=== PATIENT | female | born 1980 | race Caucasian/White ===

== ENCOUNTER 2023-11-24 16:25 | Emergency (ER) | payer OTHER, SELFPAY ==
--- NOTE | 2023-11-24 17:33 | ED_ITS ---
HPI - General Adult General Chief complaint: General Medical Stated complaint: ?infected areas,fever Time Seen by Provider: 11/25/23 03:58 Source: patient Mode of arrival: ambulatory Limitations: no limitations History of Present Illness ED Provider: Dr. Andrea Salter HPI narrative: 43-year-old female with a history of asthma, PTSD who presents emergency department for evaluation of fever, myalgias, arthralgias, fatigue and rash. The patient states that she did yd work proximally 4 days prior. She states she got multiple bites on her lower extremities. She states that over the past 2 days she has had fever, chills, fatigue, myalgias and arthralgias. She states that she is also rash on her right upper arm which is new. She denied chest pain, shortness of breath or cough. She had nausea but no vomiting or diarrhea. There are no other family members ill at this time. Related Data Previous Rx's ?Medication ?Instructions ?Recorded doxycycline hyclate 100 mg tablet 100 mg PO Q12H 21 days #42 tabs 11/25/23 ondansetron 4 mg disintegrating 4 mg PO Q6-8H PRN nausea and 11/25/23 tablet vomiting #14 tabs Allergies Allergy/AdvReac Type Severity Reaction Status Date / Time aripiprazole [From Abilify] Allergy Stomach Verified 11/24/23 17:38 Upset cephalexin [From Keflex] Allergy Stomach Verified 11/24/23 17:38 Upset Latex, Natural Rubber Allergy Rash Verified 11/24/23 17:38 nabumetone Allergy Stomach Verified 11/24/23 17:38 Upset Penicillins [PCN] Allergy Anaphylaxis Verified 11/24/23 17:38 shellfish derived Allergy Anaphylaxis Verified 11/24/23 17:38 sun sensitivity Allergy Rash Uncoded 11/24/23 17:38 Review of Systems 2 Review of Systems: Yes all other systems are reviewed and are negative [facility] Past Medical History [facility] Narrative: Social history: She denies tobacco use. She denies alcohol use. She occasionally eats a marijuana edible for her PTSD. Social History Social History Advance Directives: No Advance Directives Information Provided: No Physical Exam ED Vital Signs: Vital Signs - 24 hr 11/24/23 17:35 Temperature 99.5 F Pulse Rate 125 H Respiratory Rate 18 Blood Pressure 118/86 Pulse Oximetry 96 Oxygen Delivery Method Room Air BMI result Body Mass Index 42.7 Vital signs revealed an elevated heart rate of 125 otherwise unremarkable. Exam: General: Awake, alert in no distress Head: Normocephalic, atraumatic EENT: PERRL, Lids normal, sclera normal, conjunctiva normal, nose normal , ears normal, throat without erythema or exudates Neck: Supple, no adenopathy Lung: breath sounds symmetric, no wheezing, rales or rhonchi Chest: symmetric movement, nontender Heart: regular rate and rhythm, normal S1, S2 no murmurs or rubs Abdomen: soft, non-tender, nondistended, normal bowel sounds Back: no vertebral tenderness, no CVAT Skin: Was I lesion to her right triceps area, she has multiple lesions on her arms and lower extremities consistent with insect bites. Extremities: no deformities, moves all extremities symmetrically Neuro: Awake, alert, oriented, normal speech, cranial nerves intact, moves all extremities symmetrically Psych: Pleasant, cooperative Course Course Course Narrative: This is an RME: Additional HPI, ROS, PE not included below will be deferred to primary provider. RME assessment and note performed by: Starla Nieves PA-C This is a [id number]-female, with a hx of PTSD, anxiety, asthma, who presents to the ER with a complaint of rash, body aches, fevers, chills. Patient states that she was outdoors we would whacking. She woke up today with scattered bites throughout her body as well as a rash to her right tricep. Been taking ibuprofen and Tylenol. She states that she just ?does not feel right?. She is tachycardic, appears anxious however given symptoms, will obtain labs, blood cultures, lactic Plan: Labs Medical Decision Making Medical Decision Making MDM Narrative: 43-year-old female with a history of asthma, PTSD who presents emergency department for evaluation of fever, myalgias, arthralgias, fatigue and rash. The patient states that she did yard work 4 days prior. She states she got multiple bites on her extremity. She states that over the past 2 days she has had fever, chills, fatigue, myalgias and arthralgias. She states that she is also rash on her right upper arm which is new. She denied chest pain, shortness of breath or cough. Vital signs did reveal elevated heart rate otherwise was unremarkable. Physical examination did reveal multiple skin lesions which look like insect bites and a bull's-eye lesion to her right triceps. Differential diagnosis: ?Includes but is not limited to influenza, RSV, COVID, bacteremia, cellulitis, Lyme disease, other tick-borne illnesses, dehydration, volume depletion, anemia, electrolyte abnormalities Following evaluation was ordered:CBC, BMP, liver panel, magnesium, tick-borne illness panel, lactic acid, blood cultures x2, COVID, influenza, RSV Patient was initially treated with the following: IV insert, normal saline x1 L, Toradol 15 mg IV, Zofran 4 mg IV, doxycycline 100 mg orally Course: 04:30 My interpretation patient's laboratory evaluation as follows: Normal WBC 8500. Microcytic anemia with an H&H of 11.7 and 36.1, MCV was 78. CMP was normal. COVID-19, influenza and RSV were negative. Presentation and the is a rash on her right tricep area are consistent with acute Lyme disease. The patient doxycycline 100 mg q.12 hours times 21 days for acute Lyme disease. She was also advised to take Tylenol and ibuprofen for her fever and pain. She was given a prescription for Zofran 4 mg twice a day as needed for nausea and vomiting. She was given printed and verbal instructions and discharged home. Admission/Observation Consideration of admission/observation: Escalation of care including admission/observation considered Lab Data MDM Lab Attestation statement: I reviewed the patient's lab results. 11/24/23 18:15 11/24/23 18:15 Labs: Lab Results 11/24/23 Range/Units 18:15 WBC 8.5 (4.8-10.8) X10*3/uL RBC 4.58 (4.20-5.50) X10*6/uL Hgb 11.7 L (12.0-16.0) g/dl Hct 36.1 L (37.0-47.0) % MCV 78.8 L (80.0-98.0) fL MCH 25.5 L (27.0-33.0) pg MCHC 32.4 (31.0-35.0) g/dl RDW 15.8 (11.0-16.0) % Plt Count 281 (160-400) X10*3/uL MPV 10.2 (9.4-12.3) fL Immature Gran % (Auto) 0.2 (0.0-0.4) % Neut % (Auto) 64.5 (45-73) % Lymph % (Auto) 21.9 (20-40) % [place] % (Auto) 10.1 (2-11) % Eos % (Auto) 2.9 (0-4) % Baso % (Auto) 0.4 (0-2) % Lymph # (Auto) 1.9 (1.2-4.9) X10*3/uL [place] # (Auto) 0.9 (0.1-1.2) X10*3/uL Eos # (Auto) 0.3 (0.0-0.4) X10*3/uL Baso # (Auto) 0.0 (0.0-0.2) X10*3/uL Abs Immat Gran (auto) 0.02 (0.00-0.03) X10*3/uL Absolute Neuts (auto) 5.5 (2.0-8.3) x10*3/uL Absolute Nucleated RBC 0.000 (0.0-0.012) X10*3/uL Nucleated RBC % (auto) 0.0 (0.0-0.2) /100WBC Sodium 140 (135-145) mmol/L Potassium 3.6 (3.3-5.1) mmol/L Chloride 109 H (96-108) mmol/L Carbon Dioxide 20 L (22-29) mmol/L Anion Gap 15 (12-20) BUN 12 (9-16) mg/dL Creatinine 0.87 (0.5-1.4) mg/dL Estim Creat Clear Calc 123.8 Estimated GFR > 60 Random Glucose 101 (60-115) mg/dL Lactic Acid 0.8 (0.5-2.0) mmol/L Calcium 9.4 (8.4-10.2) mg/dL Magnesium 2.1 (1.6-2.6) mg/dL Total Bilirubin 0.2 (0.0-1.0) mg/dL Direct Bilirubin < 0.2 (0.0-0.5) mg/dL AST 15 (5-31) U/L ALT 15 (0-31) U/L Alkaline Phosphatase 73 (39-117) U/L Total Protein 7.6 (6.5-8.0) g/dL Albumin 4.4 (3.5-5.0) g/dL Influenza Type A (PCR) NEGATIVE (Negative) Influenza Type B (PCR) NEGATIVE (Negative) RSV RNA Qual (PCR) NEGATIVE (Negative) SARS-CoV-2 RNA (RT-PCR) NEGATIVE (Negative) Prescription Management I considered prescription management with: Antibiotic Chronic Conditions Patient?s care impacted by: Other (Asthma) Discharge Plan Discharge Clinical Impression: Acute Lyme disease Patient Disposition: Home, Self-Care Instructions: Lyme Disease (ED) Additional Instructions: Your symptoms and the rash on your right arm are consistent with Lyme disease. Take doxycycline 100 mg, 1 pill every 12 hours for 21 days Take Zofran ODT 4 mg pills, 1 pill dissolved in your mouth every 8 hours as needed for nausea and vomiting. Take ibuprofen 200 mg pills, 2 pills every 6 hours as needed for pain or fever. Take Tylenol (acetaminophen) 500 mg pills, 2 pills every 6 hours as needed for pain or fever. Follow-up with your doctor in 2 days. Please return to the emergency department if your symptoms get worse or if you develop any symptoms that are concerning to you. Clinically your presentation is consistent with acute Lyme disease. It is important that you take the doxycycline for 3 weeks even if the Lyme test comes back negative. Sometimes the Lyme test can be falsely negative in you still have Lyme disease. Prescriptions: New doxycycline hyclate 100 mg tablet 100 mg PO Q12H 21 Days Qty: 42 0RF ondansetron 4 mg tablet,disintegrating 4 mg PO Q6-8H PRN (Reason: nausea and vomiting) Qty: 14 0RF Print Language: Chadian
[2023-11-24 17:35] VITALS: BP 118/86; PULSE 125; RESP 18; TEMP 37.5; O2SAT 96; BMI 42.7
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
--- OUTSIDE RECORDS SUMMARY | 2023-11-24 18:18 | XMS_ITS | Continuity of Care Document ---
Author Organization [facility] Address [address] [place] [address]- Care Team Providers Care Work Order Sorting Clerk Name Role Phone Hussain Meyer Primary Care Physician Encounter [facility] Date(s): 09/13/21 - 10/13/21 [facility] [address] [place] [address]- Allergies, Adverse Reactions, Alerts Substance Reaction Severity [...]
--- OUTSIDE RECORDS SUMMARY | 2023-11-24 18:18 | XMS_ITS | Continuity of Care Document ---
Author Organization [facility] Address [address] [place] [address]- Care Team Providers Care Parking Worker Name Role Phone Hussain Meyer Primary Care Physician [phone] Encounter [facility] Date(s): 08/01/21 - 08/31/21 [facility] [address] [place] [address]- Allergies, Adverse Reactions, Alerts Substance Reaction Severity [...]
--- OUTSIDE RECORDS SUMMARY | 2023-11-24 18:18 | XMS_ITS | Continuity of Care Document ---
Author Organization [facility] Address [address] [place] [address]- Care Team Providers Care Crewman Armoured Personnel Carrier [id number] Name Role Phone Hussain Meyer Primary Care Physician Encounter [facility] Date(s): 07/07/21 - 08/06/21 [facility] [address] [place] [address]- Allergies, Adverse Reactions, Alerts Substance Reaction Severity [...]
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
--- OUTSIDE RECORDS SUMMARY | 2023-11-24 18:19 | XMS_ITS | Continuity of Care Document ---
Author Organization [facility] Address [address] [place] [address]- Care Team Providers Care Dialysis Rn Name Role Phone Hussain Meyer Primary Care Physician [place] [facility] 10[place]24/21 - 12/14/21 [facility] [address] [place] [address]- Attending Physician: Jen Mckeon MD Admitting Physician: Jen Mckeon MD Allergies, Adverse Reactions, Alerts Substance Reaction [...]
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
--- OUTSIDE RECORDS SUMMARY | 2023-11-24 18:19 | XMS_ITS | Continuity of Care Document ---
Author Organization [facility] Address [address] [place] [address]- Care Team Providers Care Freezer Machine Operator Name Role Phone Hussain Meyer Primary Care Physician Encounter [facility] Date(s): 08/09/21 - 09/08/21 [facility] [address] [place] [address]- Attending Physician: AdmGaurang muir Admitting Physician: Admtr, Ar8 Referring Physician: Admtr, Ar8 Allergies, Adverse Reactions, Alerts Substance Reaction Severity Status nabumetone Active penicillins hives, SOB Active Keflex Active Abilify abd pain Active Bee Stings Active Latex red itchines Active Seafood Active Immunizations Given and Recorded Vaccine Date [...]
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
--- OUTSIDE RECORDS SUMMARY | 2023-11-24 18:19 | XMS_ITS | Continuity of Care Document ---
Author Organization [facility] Address [address] [place] [address]- Care Team Providers Care Instrument Tester Name Role Phone Hussain Meyer Primary Care Physician [phone] [facility] Date(s): 11/14/21 - 12/14/21 [facility] [address] [place] [address]- Allergies, Adverse Reactions, Alerts Substance Reaction Severity [...]
--- OUTSIDE RECORDS SUMMARY | 2023-11-24 18:19 | XMS_ITS | Continuity of Care Document ---
Author Organization [facility] Address [address] [place] [address]- Care Team Providers Care Machine Tracer Name Role Phone Hussain Meyer Primary Care Physician [phone] Encounter [facility] Date(s): 11/14/21 - 12/14/21 [facility] [address] [place] [address]- Allergies, Adverse Reactions, Alerts Substance Reaction Severity [...]
--- OUTSIDE RECORDS SUMMARY | 2023-11-24 18:19 | XMS_ITS | Continuity of Care Document ---
[facility] Address [address] [place] [address], [address] [place] [address]- Care Team Providers Care Horticultural Specialty Grower Inside Name Role Phone Hussain Meyer Primary Care Physician En[facility] Date(s): 02/21/22 - 03/23/22 [facility] [address], 4th [place] [address]- Allergies, Adverse Reactions, Alerts Substance Reaction Severity [...] 60 tablet, 0Refills, Maintenance, 01/23/22 8:01:00 EDT, [facility], Partial fill upon patient request if the prescription is for a schedule II opioid drug.... Start Date: 01/23/22 Status: Ordered EpiPen 2-Sarabjit 0.3 mg injectable kit = 0.3 mg, Intramuscular, Once, # 2 each, 1 Refills, Soft Stop, 11/18/21 12:18:00 EDT, [facility] #[facility], 175, cm, 10/17/21 12:59:00 EDT, Height, 130, kg, 06/27/21 9:59:00 EST, Dry Weight Start Date: 11/18/21 Status: Ordered hydrOXYzine hydrochloride 25 mg oral tablet 1 tablet = 25 mg, By Mouth, 4 times a day, PRN for anxiety, # 120 tablet, 0 Refills, Maintenance, 01/03/22 20:08:00 EDT, Tablet, [facility] #[facility], Partial fill upon patient [...] 9:02:00 EDT, Inhaler, Route to Pharmacy Electronically, [id number], [facility], 175, cm, 10/17/21 12:59:00 E... Start Date: 11/14/21 Status: Ordered traZODone 50 mg oral tablet 50 mg, 1, tablet, By Mouth, Daily at bedtime, # 90 tablet, Refills 0, Tot. Refills 0, Maintenance, 11/14/21 9:00:00 EDT, Route to Pharmacy Electronically, [facility], Partial fill upon patient request if the prescription is for a schedule II o... Start Date: 11/14/21 Status: Ordered Unisom 25 mg oral tablet 1 tablet = 25 mg, By Mouth, Daily at bedtime, PRN for sleep, # 30 tablet, 1 Refills, Maintenance, 03/16/22 9:43:00 EDT, Tablet, [facility] #[facility], Partial fill upon patient request [...] Care Team Personnel Name: Hussain Meyer Address: [address] [place] [address] [facility] [address]-
--- OUTSIDE RECORDS SUMMARY | 2023-11-24 18:19 | XMS_ITS | Continuity of Care Document ---
Author Organization [facility] Address [address] [place] [address]- Care Team Providers Care Electrical Assembler Name Role Phone Hussain Meyer Primary Care Physician Encounter [facility] Date(s): 11/14/21 - 12/14/21 [facility] [address] [place] [address]- Allergies, Adverse Reactions, Alerts Substance Reaction Severity [...]
--- OUTSIDE RECORDS SUMMARY | 2023-11-24 18:19 | XMS_ITS | Continuity of Care Document ---
Author Organization [facility] Address [address] [place] [address]- Care Team Providers Care Road Monkey Name Role Phone Hussain Meyer Primary Care Physician Encounter [facility] Date(s): 08/03/21 - 09/02/21 [facility] [place] [address] [place] [address]- Allergies, Adverse Reactions, Alerts Substance Reaction Severity [...] Contreras rded influenza virus vaccine, inactivated 02/18/19 Conterras rded influenza virus vaccine, inactivated 03/27/18 Contreras [...]
--- OUTSIDE RECORDS SUMMARY | 2023-11-24 18:19 | XMS_ITS | Continuity of Care Document ---
Author Organization [facility] Address [address] [place] [address]- Care Team Providers Care Open Hearth Door Liner Name Role Phone Hussain Meyer Primary Care Physician Encounter [facility] Date(s): 08/05/21 - 09/04/21 [facility] [address] [place] [address]- Allergies, Adverse Reactions, Alerts Substance Reaction Severity [...]
--- OUTSIDE RECORDS SUMMARY | 2023-11-24 18:19 | XMS_ITS | Continuity of Care Document ---
Author Organization [facility] Address [address] [place] [address]- Care Team Providers Care Scratch Finisher Name Role Phone Hussain Meyer Primary Care Physician Encounter [facility] Date(s): 09/23/21 - 10/23/21 [facility] [address] [place] [address]- Allergies, Adverse Reactions, Alerts Substance Reaction Severity Status nabumetone Active penicillins hives, SOB Active Keflex Active Seafood Active Abilify abd pain Active Bee Stings Active Latex red itchines Active Immunizations Given and Recorded Vaccine Date [...]
--- OUTSIDE RECORDS SUMMARY | 2023-11-24 18:19 | XMS_ITS | Continuity of Care Document ---
Author Organization [facility] [place] Address [address] [address]- Care Team Providers Care Air Export Logistics Manager Name Role Phone Hussain Meyer Primary Care Physician Encounter [facility] Date(s): 06/27/21 - 07/27/21 [facility] [address] [address]- Attending Physician: Admtr, Ar8 Admitting Physician: Admtr, Ar8 Referring Physician: Admtr, [...]
--- OUTSIDE RECORDS SUMMARY | 2023-11-24 18:19 | XMS_ITS | Continuity of Care Document ---
Author Organization [facility] Address [address] [place] [address]- Care Team Providers Care Head Of Design Name Role Phone Hussain Meyer Primary Care Physician Encounter [facility] Date(s): 07/08/21 - 08/07/21 [facility] [address] [place] [address]- Allergies, Adverse Reactions, Alerts Substance Reaction Severity [...]
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
--- OUTSIDE RECORDS SUMMARY | 2023-11-24 18:19 | XMS_ITS | Continuity of Care Document ---
Author Organization [facility] [place] Address [address] [place] [address]- Care Team Providers Care Yard Driver Name Role Phone Hussain Meyer Primary Care Physician Encounter [facility] Date(s): 07/07/21 - 08/06/21 [facility] [address] [place] [address]- Allergies, Adverse Reactions, Alerts Substance Reaction Severity [...]
--- OUTSIDE RECORDS SUMMARY | 2023-11-24 18:19 | XMS_ITS | Continuity of Care Document ---
Author Organization [facility] [place] Address [address] [place] [address]- Care Team Providers Care Security Incident Response Specialist Name Role Phone Hussain Meyer Primary Care Physician Encounter [facility] Date(s): 06/27/21 - 07/27/21 [facility] [address] [place] [address]- Allergies, Adverse Reactions, Alerts Substance Reaction Severity [...]
--- OUTSIDE RECORDS SUMMARY | 2023-11-24 18:19 | XMS_ITS | Continuity of Care Document ---
Author Organization [facility] Address [address] [place] [address]- Care Team Providers Care Copra Processor Name Role Phone Hussain Meyer Primary Care Physician [phone] Encounter [facility] Date(s): 11/15/21 - 12/15/21 [facility] [address] [place] [address]- Allergies, Adverse Reactions, Alerts Substance Reaction Severity [...]
--- OUTSIDE RECORDS SUMMARY | 2023-11-24 18:20 | XMS_ITS | Continuity of Care Document ---
Author Organization [facility] Address [address] [place] [address]- Care Team Providers Care Cloud Subject Matter Expert Name Role Phone Hussain Meyer Primary Care Physician [phone] Encounter [facility] Date(s): 08/03/21 - 09/02/21 [facility] [address] [place] [address]- Allergies, Adverse Reactions, Alerts Substance Reaction Severity [...]
--- OUTSIDE RECORDS SUMMARY | 2023-11-24 18:20 | XMS_ITS | Continuity of Care Document ---
Author Organization [facility] Address [address] [place] [address]- Care Team Providers Care Media Librarian Name Role Phone Hussain Meyer Primary Care Physician [phone] [place] [facility] [place]s): 11/23/21 - 12/23/21 [facility] [address] [place] [address] Attending Physician: Gaurang Rodriguez Admitting Physician: Gaurang Rodriguez Referring Physician: [id number] Allergies, Adverse Reactions, Alerts Substance Reaction Severity Status nabumetone Active Seafood Active Abilify abd pain Active penicillins hives, SOB Active Keflex Active [...]
--- OUTSIDE RECORDS SUMMARY | 2023-11-24 18:20 | XMS_ITS | Continuity of Care Document ---
Author Organization [facility] Address [address] [place] [address]- Care Team Providers Care Pneumatic Tube Repairer Name Role Phone Hussain Meyer Primary Care Physician Encounter [facility] Date(s): 08/04/21 - 09/03/21 [facility] [address] [place] [address]- Allergies, Adverse Reactions, Alerts Substance Reaction Severity [...]
--- OUTSIDE RECORDS SUMMARY | 2023-11-24 18:20 | XMS_ITS | Continuity of Care Document ---
Author Organization [facility] Address [address] [place] [address]- Care Team Providers Care Cloth Packer Name Role Phone Not on Staff, PCP Primary Care Physician Unavail able Encounter [facility] [id number] Date(s): 04/17/21 - 04/17/[address] [address]- Discharge Disposition: A-D/C Home Attending Physician: Quincy Heard MD Admitting Physician: Quincy Heard MD Referring Physician: Not on Staff, Referring MD Allergies, Adverse Reactions, Alerts Substance Reaction Severity Status nabumetone Active penicillins hives, SOB Active Keflex Active Abilify abd pain Active Bee Stings Active Latex red itchines Active Seafood Active Immunizations Given and Recorded Vaccine Date Status Refusal Reason SARS-CoV-2 (COVID-19) mRNA-1273 vaccine 11/02/20 R ecorded SARS-CoV-2 (COVID-19) mRNA-1273 vaccine 10/07/20 R ecorded influenza virus vaccine, inactivated 05/20/20 Contreras rded influenza virus vaccine, inactivated 02/18/19 Contreras rded influenza virus vaccine, inactivated 03/27/18 Contreras rded influenza virus vaccine, inactivated 05/25/17 Contreras rded tetanus/diphtheria/pertussis, acel(Tdap) 11/26/19 Recorded tetanus/diphtheria/pertussis, acel(Tdap) 07/10/09 Recorded Fluzone Preservative-Free (oldterm) 04/16/15 Recor ded Adacel (Tdap) (oldterm) 07/10/09 Recorded Medications Advil 200 mg oral tablet 4 tablet = 800 mg, By Mouth, Every 6 hours, PRN as needed for pain, For chronic back pain, 07/22/1411:30:00 Start Date: 07/22/13 Status: Ordered Dilaudid Inj 1 mg, Injection, IV Push Slowly, Every 30 minutes for 2 doses/times, PRN for Other, Pain >3/10, STAT, 04/17/21 5:15:00 EDT, Stop date Limited # of times Start Date: 04/17/21 Stop Date: 04/17/21 Status: Completed Percocet-5/325 325 mg-5 mg oral tablet 2 tablet, Tablet, By Mouth, Once, Routine, 04/17/21 10:00:00 EDT, Stop date 04/17/21 10:00:00 EDT Start Date: 04/17/21 Stop Date: 04/17/21 Status: Completed Multivitamins with Vitamin B Complex, Vitamin C, Minerals and L- Methylfolate oral capsule 1 capsule, By Mouth, Daily, 0 Refills, Maintenance, 01/28/19 3:23:36 EDT, Capsule Start Date: 01/28/19 Status: Ordered PROzac 40 mg oral capsule 1 capsule = 40 mg, By Mouth, Daily, # 30 capsule, [...] to oldest [Reference Range]: 1 2 3 Height 175 cm (04/17/21 5:00 AM) Weight 125.7 kg (04/17/21 5:00 AM) Oxygen Saturation [94-100 %] 97 % (04/17/21 8:55 AM) 97 % (04/17/21 7:48 AM) 100 % (04/17/21 5:00 AM) Pulse Rate [55-90 bpm] 87 bpm (04/17/21 8:55 AM) 93 bpm *H* (04/17/21 7:48 AM) 100 bpm *H* (04/17/21 5:00 AM) Blood Pressure [90-138/55-84 mm Hg] 101/55mm Hg (04/17/21 8:55 AM) 122/78mm Hg (04/17/21 7:48 AM) 135/67mm Hg (04/17/21 5:00 AM) Respiratory Rate [16-30 br/min] 20 br/min (04/17/21 8:55 AM) 20 br/min (04/17/21 8:48 AM) 20 br/min (04/17/21 8:13 AM) Temperature [96.8-100.4 DegF] 96.9 DegF (04/17/21 5:00 AM) Mode of Delivery (Oxygen) Room air (04/17/21 8:55 AM) Room air (04/17/21 7:48 AM) Room air (04/17/21 5:00 AM) Blood pressure sites Arm, right (04/17/21 8:55 AM) Arm, right (04/17/21 7:48 AM) Arm, left (04/17/21 5:00 AM) Temperature Route Temporal (04/17/21 5:00 AM) Dry Weight 125.7 kg (04/17/21 5:00 AM) Weight Obtained Via Patient/family state d (04/17/21 5:00 AM) Dry Weight Obtained Via Patient/family s tated (04/17/21 5:00 AM) Social History Social History Type Response Smoking Status Never smoker; Tobacc o user in household: No entered on: 06/21/15 Sex
--- OUTSIDE RECORDS SUMMARY | 2023-11-24 18:20 | XMS_ITS | Continuity of Care Document ---
Author Organization [facility] Address [address] [place] [address]- Care Team Providers Care Crab Picker Name Role Phone Hussain Meyer Primary Care Physician Encounter [facility] Date(s): 07/26/21 - 08/25/21 [facility] [address] [place] [address]- Allergies, Adverse Reactions, Alerts Substance Reaction Severity Status nabumetone Active penicillins hives, SOB Active Bee Stings Active Latex red itchines Active Seafood Active Abilify abd pain Active Keflex Active Immunizations Given and Recorded Vaccine Date [...]
--- OUTSIDE RECORDS SUMMARY | 2023-11-24 18:20 | XMS_ITS | Continuity of Care Document ---
Author Organization [facility] [place] Address [address] [place] [address]- Care Team Providers Care Derrick Operator Name Role Phone Hussain Meyer Primary Care Physician Encounter [facility] Date(s): 07/19/21 - 08/18/21 [facility] [address] [place] [address]- Allergies, Adverse Reactions, Alerts Substance Reaction Severity Status nabumetone Active Abilify abd pain Active penicillins hives, [...]
--- OUTSIDE RECORDS SUMMARY | 2023-11-24 18:20 | XMS_ITS | Continuity of Care Document ---
Author Organization [facility] Address [address] [place] [address]- Care Team Providers Care Hose Cementer Name Role Phone Hussain Meyer Primary Care Physician [phone] Encounter [facility] Date(s): 07/08/21 - 08/07/21 [facility] [address] [place] [address]- Allergies, Adverse Reactions, Alerts Substance Reaction Severity [...]
--- OUTSIDE RECORDS SUMMARY | 2023-11-24 18:20 | XMS_ITS | Continuity of Care Document ---
Author Organization [employer] Address [address] [place] [address]- Care Team Providers Care Dental Hygiene Professor Name Role Phone Crystal Cintron MD Primary Care Physician Encounter [facility] Date(s): 08/17/20 - 08/17/[address] [address]- Encounter Diagnosis Ovarian cyst, right(Final) - 08/17/20 Urinary urgency(Final) - 08/17/20 Increased urinary frequency(Final) - 08/17/20 Discharge Disposition: A-D/C Home Attending Physician: Josh Gu MD Admitting Physician: Josh Gu MD Referring Physician: Not on Staff, Referring MD Allergies, Adverse Reactions, Alerts Substance Reaction Severity Status nabumetone Active penicillins hives, SOB Active Keflex Active Bee Stings Active Latex red itchines Active Seafood Active Abilify abd pain Active Immunizations Given and Recorded Vaccine Date Status Refusal Reason Fluzone Preservative-Free (oldterm) 04/16/15 Recor ded Adacel (Tdap) (oldterm) 07/10/09 Recorded Medications Advil 200 mg oral tablet 4 tablet = 800 mg, By Mouth, Every 6 hours, PRN as needed for pain, For chronic back pain, 07/22/1411:30:00 Start Date: 07/22/13 Status: Ordered cyclobenzaprine 5 mg oral tablet 1 tablet = 5 mg, By Mouth, 3 times a day, # 90 tablet, 1 Refills, Maintenance, 10/09/16 9:17:00 Start Date: 10/09/16 Status: Ordered Depo-Provera Contraceptive 150 mg/mL intramuscular suspension 1 mL = 150 mg, Intramuscular, Every 3 months, # 1 mL, 3 Refills, Maintenance, 02/21/17 13:28:17, Suspension Start Date: 02/21/17 Status: Ordered EpiPen 2-Sarabjit USE DIRECTED NEEDED FOR BEE STING, 11/17/13 5:00:00 Start Date: 11/17/13 Status: Ordered MorPHINE Inj 4 mg, Injection, IV Push Slowly, Every 5 minutes for 3 doses/times, PRN for Pain , Moderate, and SBP greater than 100, Routine, 08/17/20 22:14:00 EST, Stop date Limited # of times Start Date: 08/17/20 Status: Ordered Multivitamin 2 gummies, By Mouth, Daily in AM, 0 Refills, Maintenance, 09/14/15 11:37:42 Start Date: 09/14/15 Status: Ordered nitrofurantoin macrocrystals-monohydrate 100 mg oral capsule 1 capsule = 100 mg, By Mouth, 2 times a day, for 5 days, # 10 capsule, 0 Refills, Acute 08/22/20 22:08:00 EST, 08/17/20 22:08:00 EST, Capsule, [facility], Partial fill upon patient request ifthe prescription is for a schedule II opioid drug.,... Start Date: 08/17/20 Stop Date: 08/22/20 Status: Ordered phenazopyridine 200 mg oral tablet 200 mg, 1, tablet, By Mouth, 3 times a day, PRN, with food, # 6 tablet, Refills 0, Tot. Refills 0, Maintenance, as needed for urinary discomfort, 01/28/19 5:07:24 EDT, Print Requisition Start Date: 01/28/19 Status: Ordered Multivitamins with Vitamin B Complex, Vitamin C, Minerals and L- Methylfolate oral capsule 1 capsule, By Mouth, Daily, 0 Refills, Maintenance, 01/28/19 3:23:36 EDT, Capsule Start Date: 01/28/19 Status: Ordered Problem List Condition Effective Dates [...] Range]: 1 2 3 Height 175 cm (08/17/20 10:16 PM) 175 cm (08/17/20 8:34 PM) 175 cm (08/17/20 7:42 PM) Weight 128.5 kg (08/17/20 8:34 PM) 128.5 kg (08/17/20 7:42 PM) 128.5 kg (08/17/20 4:56 PM) Oxygen Saturation [94-100 %] 100 % (08/17/20 10:16 PM) 100 % (08/17/20 8:34 PM) 100 % (08/17/20 7:42 PM) Pulse Rate [55-90 bpm] 93 bpm *H* (08/17/20 10:16 PM) 91 bpm *H* (08/17/20 8:34 PM) 93 bpm *H* (08/17/20 7:42 PM) Body Mass Index [18.5-24.99] 41.96 *>HHI* (08/17/20 8:34 PM) 41.96 *>HHI* (08/17/20 7:42 PM) Blood Pressure [90-138/55-84 mm Hg] 110/73mm Hg (08/17/20 10:16 PM) 97/66mm Hg (08/17/20 8:34 PM) 95/67mm Hg (08/17/20 7:42 PM) Respiratory Rate [16-30 br/min] 16 br/min (08/17/20 10:16 PM) 20 br/min (08/17/20 10:15 PM) 17 br/min (08/17/20 8:34 PM) Temperature [96.8-100.4 DegF] 97.2 DegF (08/17/20 4:56 PM) Mode of Delivery (Oxygen) Room air (08/17/20 10:16 PM) Room air (08/17/20 8:34 PM) Room air (08/17/20 7:42 PM) Blood pressure sites Arm, left (08/17/20 10:16 PM) Arm, right (08/17/20 8:34 PM) Arm, right (08/17/20 7:42 PM) Temperature Route Temporal (08/17/20 4:56 PM) Dry Weight 128.5 kg (08/17/20 8:34 PM) 128.5 kg (08/17/20 7:42 PM) 128.5 kg (08/17/20 4:56 PM) Dry Weight Obtained Via Standing scale (08/17/20 4:56 PM) Social History Social History Type Response Smoking Status Never smoker; Tobacc o user in household: No entered on: 06/21/15 Sex
--- OUTSIDE RECORDS SUMMARY | 2023-11-24 18:20 | XMS_ITS | Continuity of Care Document ---
Author Organization [facility] Address [address] [place] [address]- Care Team Providers Care Hand Surgeon Name Role Phone Hussain Meyer Primary Care Physician Encounter [facility] Date(s): 05/03/21 - 06/02/21 [facility] [address] [place] [address]- Allergies, Adverse Reactions, Alerts Substance Reaction Severity [...] pain, 07/22/1411:30:00 Start Date: 07/22/13 Status: Ordered Multivitamins with Vitamin B Complex, [...] Active Obesity(Confirmed) Active Post-traumatic stress disorder(Confirmed) Active Social History Social History Type Response Smoking Status Never smoker; Tobacc o user in household: No entered on: 06/21/15 Sex
--- OUTSIDE RECORDS SUMMARY | 2023-11-24 18:20 | XMS_ITS | Continuity of Care Document ---
Author Organization [facility] Address [address], [address] [place] [address]- Care Team Providers Care Associate Field Service Engineer Name Role Phone Hussain Meyer Primary Care Physician Encounter [facility] Date(s): 01/27/22 - 02/26/22 [facility] [address] [place] [address]- Allergies, Adverse Reactions, Alerts Substance Reaction Severity [...] opioid drug. Start Date: 10/17/21 Status: Ordered Unisom 25 mg oral tablet 1/2 tablet, By Mouth, Daily at bedtime, for 30 days, # 15 tablet, 0 Refills, Acute 03/15/22 9:40:00EDT, 02/13/22 9:40:00 EDT, [facility], Partial fill upon patient request if the prescription is for a schedule II opioid drug., 175, cm, ... Start Date: 02/13/22 Stop Date: 03/15/22 Status: Ordered Vitamin B6 25 mg oral tablet 1 tablet = 25 mg, By Mouth, 3 times a day, for 30 days, # 90 tablet, 0 Refills, Acute 03/15/22 9:40:00 EDT, 02/13/22 9:40:00 EDT, [facility], Partial fill upon patient [...] Team Personnel Name: Hussain Meyer Address: [address] [place] [address] [place] [address]-
--- OUTSIDE RECORDS SUMMARY | 2023-11-24 18:20 | XMS_ITS | Continuity of Care Document ---
Author Organization [facility] Address [address] [place] [address]- Care Team Providers Care Commercial Loan Processor Name Role Phone Hussani Meyer Primary Care Physician Encounter [facility] Date(s): 04/21/21 - 05/21/21 [facility] [address] [place] [address]- [place] Allergies, Adverse Reactions, Alerts Substance Reaction Severity [...]
--- OUTSIDE RECORDS SUMMARY | 2023-11-24 18:20 | XMS_ITS | Continuity of Care Document ---
Author Organization [facility] Address [address], [address] [place] [address]- Care Team Providers Care Facility Specialist Name Role Phone Hussain Meyer Primary Care Physician Encounter [facility] Date(s): 02/05/22 - 03/07/22 [facility] [place] [facility] [address] [place] [address]- Allergies, Adverse Reactions, Alerts Substance Reaction Severity [...] 60 tablet, 0Refills, Maintenance, 01/23/22 8:01:00 EDT, [facility], Partial fill upon patient request if the prescription is for a schedule II opioid drug.... Start Date: 01/23/22 Status: Ordered EpiPen 2-Sarabjit 0.3 mg injectable kit = 0.3 mg, Intramuscular, Once, # 2 each, 1 Refills, Soft Stop, 11/18/21 12:18:00 EDT, [facility], 175, cm, 10/17/21 12:59:00 EDT, Height, 130, kg, 06/27/21 9:59:00 EST, Dry Weight Start Date: 11/18/21 Status: Ordered hydrOXYzine hydrochloride 25 mg oral tablet 1 tablet = 25 mg, By Mouth, 4 times a day, PRN for anxiety, # 120 tablet, 0 Refills, Maintenance, 01/03/22 20:08:00 EDT, Tablet, [facility], Partial fill upon [...] 9:02:00 EDT, Inhaler, Route to Pharmacy Electronically, [id number], [facility], 175, cm, 10/17/21 [...] Care Team Personnel Name: Hussain Meyer Address: [address] [place] [address] [address]-
--- OUTSIDE RECORDS SUMMARY | 2023-11-24 18:20 | XMS_ITS | Continuity of Care Document ---
Author Organization [facility] Address [address] [place] [address]- Care Team Providers Care Spanish Instructor Name Role Phone Hussain Meyer Primary Care Physician Encounter [facility] Date(s): 09/13/21 - 10/13/21 [facility] [address] [place] [address]- Allergies, Adverse Reactions, Alerts Substance Reaction Severity [...]
--- OUTSIDE RECORDS SUMMARY | 2023-11-24 18:20 | XMS_ITS | Continuity of Care Document ---
Author Organization [facility] Address [address] [place] [address]- Care Team Providers Care Tugboat Captain Name Role Phone Saida RIVERA, Crystal Magallanes Primary Care Physician Encounter [facility] Date(s): 04/17/21 - 04/19/[address] [address] Discharge Disposition: A-D/C Home Attending Physician: Shreya Melo MD Admitting Physician: Tad Boucher DO Referring Physician: Not on Staff, Referring MD Allergies, Adverse Reactions, Alerts Substance Reaction Severity Status nabumetone Active penicillins hives, SOB Active Latex red itchines Active Abilify abd pain Active Keflex Active Bee Stings Active Seafood Active Immunizations Given and Recorded [...] Start Date: 07/22/13 Status: Ordered Dilaudid Inj 0.5 mg, Injection, IV Push Slowly, Every 3 hours, PRN for Pain , Severe, Routine, 04/17/21 19:15:00EDT Start Date: 04/17/21 Stop Date: 04/19/21 Status: Discontinued oxyCODONE 5 mg oral tablet 5 mg, Tablet, By Mouth, Every 6 hours, PRN for Pain , Moderate, Routine, 04/18/21 1:01:00 EDT Start Date: 04/18/21 Stop Date: 04/19/21 Status: Discontinued Multivitamins with Vitamin B Complex, Vitamin C, [...] opioid drug. Start Date: 04/17/21 Status: Ordered simethicone 80 mg oral tablet, chewable 80 mg, 1, tablet, Chew, 4 times a day, # 12 tablet, Refills 0, Tot. Refills 0, Acute 04/20/21 10:11:00 EDT, 04/19/21 10:10:00 EDT, Route to Pharmacy Electronically, [facility], Partial fill upon patient request if the prescription is for a neil... Start Date: 04/19/21 Stop Date: 04/20/21 Status: Ordered Zofran 4 mg oral tablet 1 tablet = 4 mg, By Mouth, Every 8 hours, PRN Nausea & Vomiting, # 10 tablet, 0 Refills, Acute 04/20/21 10:10:00 EDT, 04/19/21 10:10:00 EDT, Tablet, [facility], Partial fill upon patient request if the prescription is for a schedule II opioid... Start Date: 04/19/21 Stop Date: 04/20/21 Status: Ordered Problem List Condition Effective Dates [...] Range]: 1 2 3 Height 175 cm (04/19/21 5:24 AM) 175 cm (04/18/21 8:52 PM) 175 cm (04/18/21 2:54 PM) Weight 127.7 kg (04/17/21 8:00 PM) 127.7 kg (04/17/21 7:53 PM) 126 kg (04/17/21 4:41 PM) Oxygen Saturation [94-100 %] 94 % (04/19/21 5:24 AM) 92 % *L* (04/18/21 8:52 PM) 99 % (04/18/21 2:54 PM) Pulse Rate [55-90 bpm] 74 bpm (04/19/21 5:24 AM) 88 bpm (04/18/21 8:52 PM) 97 bpm *H* (04/18/21 2:54 PM) Body Mass Index [18.5-24.99] 41.7 *>HHI* (04/17/21 8:00 PM) 41.7 *>HHI* (04/17/21 7:53 PM) Blood Pressure [90-138/55-84 mm Hg] 97/62mm Hg (04/19/21 5:24 AM) 98/59mm Hg (04/18/21 8:52 PM) 123/88mm Hg (04/18/21 2:54 PM) Respiratory Rate [16-30 br/min] 18 br/min (04/19/21 10:28 AM) 18 br/min (04/19/21 6:17 AM) 20 br/min (04/19/21 5:24 AM) Temperature [96.8-100.4 DegF] 97.8 DegF (04/19/21 5:24 AM) 99.1 DegF (04/18/21 8:52 PM) 97.2 DegF (04/18/21 2:54 PM) Mode of Delivery (Oxygen) Room air (04/19/21 5:24 AM) Room air (04/18/21 8:52 PM) Room air (04/18/21 2:54 PM) Blood pressure sites Arm, right (04/19/21 5:24 AM) Arm, right (04/18/21 8:52 PM) Arm, left (04/18/21 2:54 PM) Temperature Route Oral (04/19/21 5:24 AM) Oral (04/18/21 8:52 PM) Oral (04/18/21 2:54 PM) Dry Weight 127.7 kg (04/17/21 8:00 PM) 127.7 kg (04/17/21 7:53 PM) 126 kg (04/17/21 4:41 PM) Weight Obtained Via Standing scale (04/17/21 7:53 PM) Dry Weight Obtained Via Standing scale (04/17/21 7:53 PM) Social History Social History Type Response Smoking Status Never smoker; Tobacc o user in household: No entered on: 06/21/15 Sex
--- OUTSIDE RECORDS SUMMARY | 2023-11-24 18:20 | XMS_ITS | Continuity of Care Document ---
Author Organization [facility] Address [address] [place] [address]- Care Team Providers Care Reports Developer Name Role Phone Hussain Meyer Primary Care Physician [phone] [facility] Date(s): 11/14/21 - 12/14/21 [facility] [address] [place] [address]- Allergies, Adverse Reactions, Alerts Substance Reaction Severity [...]
--- OUTSIDE RECORDS SUMMARY | 2023-11-24 18:20 | XMS_ITS | Continuity of Care Document ---
Author Organization [facility] Address [address], [address] [place] [address]- Care Team Providers Care Software Quality Engineer Name Role Phone Hussain Meyer Primary Care Physician Encounter [facility] Date(s): 02/13/22 - 03/15/22 [facility] [address] [place] [address]- Attending Physician: Admtr, Ar8 Admitting Physician: Admtr, [...] 60 tablet, 0Refills, Maintenance, 01/23/22 8:01:00 EDT, [facility], Partial fill upon patient request if the prescription is for a schedule II opioid drug.... Start Date: 01/23/22 Status: Ordered EpiPen 2-Sarabjit 0.3 mg injectable kit = 0.3 mg, Intramuscular, Once, # 2 each, 1 Refills, Soft Stop, 11/18/21 12:18:00 EDT, [facility], 175, cm, 10/17/21 12:59:00 EDT, Height, 130, kg, 06/27/21 9:59:00 EST, Dry Weight Start Date: 11/18/21 Status: Ordered hydrOXYzine hydrochloride 25 mg oral tablet 1 tablet = 25 mg, By Mouth, 4 times a day, PRN for anxiety, # 120 tablet, 0 Refills, Maintenance, 01/03/22 20:08:00 EDT, Tablet, [facility], Partial fill upon [...] 9:02:00 EDT, Inhaler, Route to Pharmacy Electronically, [id number], [facility], 175, cm, 10/17/21 12:59:00 E... Start Date: 11/14/21 Status: Ordered traZODone 50 mg oral tablet 50 mg, 1, tablet, By Mouth, Daily at bedtime, # 90 tablet, Refills 0, Tot. Refills 0, Maintenance, 11/14/21 9:00:00 EDT, Route to Pharmacy Electronically, [facility], Partial fill upon patient request if the prescription is for a schedule II o... Start Date: 11/14/21 Status: Ordered Problem List Condition Effective Dates [...] Care Team Personnel Name: Hussain Meyer Address: [address] [place] [address] [place] [address]-
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
--- OUTSIDE RECORDS SUMMARY | 2023-11-24 18:20 | XMS_ITS | Continuity of Care Document ---
Author Organization [facility] Address [address] [place] [address], [address] [place] [address]- Care Team Providers Care Discovery Guide Name Role Phone Hussain Meyer Primary Care Physician En[facility] Date(s): 02/13/22 - 02/20/22 [facility] [address] [place], [place] [address] Attending Physician: Ariella Clemente MD Referring Physician: Hussain Meyer Allergies, Adverse Reactions, [...] Refills, Acute 03/15/22 9:40:00EDT, 02/13/22 9:40:00 EDT, [facility], Partial fill upon patient request if the prescription is for a schedule II opioid drug., 175, cm, ... Start Date: 02/13/22 Stop Date: 03/15/22 Status: Ordered Vitamin B6 25 mg oral tablet 1 tablet = 25 mg, By Mouth, 3 times a day, for 30 days, # 90 tablet, 0 Refills, Acute 03/15/22 9:40:00 EDT, 02/13/22 9:40:00 EDT, [facility], Partial fill upon patient request [...] Post-traumatic stress disorder(Confirmed) Active Severe obesity(Confirmed) Active Vital Signs Most recent to oldest [Reference Range]: 1 Height 175 cm (02/13/22 8:58 AM) Social History Social History Type Response Smoking Status Never (less than 100 in lifetime) entered on: 06/14/21 Sex
--- OUTSIDE RECORDS SUMMARY | 2023-11-24 18:20 | XMS_ITS | Continuity of Care Document ---
Author Organization [facility] Address [address] [place] [address]- Care Team Providers Care Database Design Analyst Name Role Phone Hussain Meyer Primary Care Physician [phone] Encounter [facility] Date(s): 07/21/21 - 08/20/21 [facility] [address] [place] [address]- Attending Physician: AdmGaurang muir Admitting Physician: Admtr, Ar8 Referring Physician: Admtr, Ar8 Allergies, Adverse Reactions, Alerts Substance Reaction Severity Status nabumetone Active penicillins hives, SOB Active Abilify abd pain Active Keflex Active Bee Stings Active Latex [...] Contreras rded influenza virus vaccine, inactivated 03/27/18 Conrteras rded influenza virus vaccine, inactivated 05/25/17 Contreras [...]
--- OUTSIDE RECORDS SUMMARY | 2023-11-24 18:20 | XMS_ITS | Continuity of Care Document ---
Author Organization [facility] Address [address] [place] [address]- Care Team Providers Care Daycare Director Name Role Phone Hussain Meyer Primary Care Physician Encounter [facility] Date(s): 01/19/22 - 02/18/22 [facility] [address] [place] [address]- Allergies, Adverse Reactions, Alerts Substance Reaction Severity [...] Refills, Acute 03/15/22 9:40:00EDT, 02/13/22 9:40:00 EDT, [facility], Partial fill upon patient request if the prescription is for a schedule II opioid drug., 175, cm, ... Start Date: 02/13/22 Stop Date: 03/15/22 Status: Ordered Vitamin B6 25 mg oral tablet 1 tablet = 25 mg, By Mouth, 3 times a day, for 30 days, # 90 tablet, 0 Refills, Acute 03/15/22 9:40:00 EDT, 02/13/22 9:40:00 EDT, [facility], Partial fill upon patient request [...]
--- OUTSIDE RECORDS SUMMARY | 2023-11-24 18:20 | XMS_ITS | Continuity of Care Document ---
Author Organization [facility] Address [address] [place] [address]- Care Team Providers Care Polishing Wheel Setter Name Role Phone Hussain Meyer Primary Care Physician Encounter [facility] Date(s): 01/03/22 - 02/02/22 [facility] [address] [place] [address]- Allergies, Adverse Reactions, Alerts Substance Reaction Severity [...]
--- OUTSIDE RECORDS SUMMARY | 2023-11-24 18:20 | XMS_ITS | Continuity of Care Document ---
Author Organization [facility] Address [address] [place] [address]- Care Team Providers Care Dimensional Integration Engineer Name Role Phone Hussain Meyer Primary Care Physician Encounter [facility] Date(s): 07/07/21 - 08/06/21 [facility] [address] [place] [address]- Allergies, Adverse Reactions, Alerts Substance Reaction Severity [...]
--- OUTSIDE RECORDS SUMMARY | 2023-11-24 18:20 | XMS_ITS | Continuity of Care Document ---
Author Organization [facility] Address [address] [place] [address]- Care Team Providers Care Bander Hand Name Role Phone Hussain Meyer Primary Care Physician Encounter [facility] Date(s): 06/27/21 - 07/27/21 [facility] [address] [place] [address]- Allergies, Adverse Reactions, Alerts Substance Reaction Severity [...]
--- OUTSIDE RECORDS SUMMARY | 2023-11-24 18:20 | XMS_ITS | Continuity of Care Document ---
Author Organization [facility] Andrea n's [facility] Address [address], [address]t [place] [address]- Care Team Providers Care Sterile Instrument Technician Name Role Phone Hussain Meyer Primary Care Physician [phone] [id number] Date(s): 03/20/22 - 03/27/22 [facility] Esau Glovers [facility] [address], [address]th [place] [address]- Attending Physician: Christen Vza MD Referring Physician: Conner RIVERA [OB], Dorys Fleming Allergies, Adverse Reactions, Alerts Substance Reaction Severity [...] Contreras rded influenza virus vaccine, inactivated 03/27/18 Contrersa rded influenza virus vaccine, inactivated 05/25/17 Contreras rded tetanus/diphtheria/pertussis, acel(Tdap) 11/26/19 Recorded tetanus/diphtheria/pertussis, acel(Tdap) 07/10/09 Recorded Fluzone Preservative-Free (oldterm) 04/16/15 Recor ded Adacel (Tdap) (oldterm) 07/10/09 Recorded Medications cyclobenzaprine 5 mg oral tablet See Instructions, 1 tablet By Mouth as needed for back spasm. Up to 3 a day maximum, # 60 tablet, 0Refills, Maintenance, 01/23/22 8:01:00 EDT, [facility], Partial fill upon patient request if the prescription is for a schedule II opioid drug.... Start Date: 01/23/22 Status: Ordered EpiPen 2-Sarabjit 0.3 mg injectable kit = 0.3 mg, Intramuscular, Once, # 2 each, 1 Refills, Soft Stop, 11/18/21 12:18:00 EDT, [facility], 175, cm, 10/17/21 12:59:00 EDT, Height, 130, kg, 06/27/21 9:59:00 EST, Dry Weight Start Date: 11/18/21 Status: Ordered hydrOXYzine hydrochloride 25 mg oral tablet 1 tablet = 25 mg, By Mouth, 4 times a day, PRN for anxiety, # 120 tablet, 0 Refills, Maintenance, 01/03/22 20:08:00 EDT, Tablet, [facility] #[facility], Partial fill upon [...] 9:02:00 EDT, Inhaler, Route to Pharmacy Electronically, [id number], [facility], 175, cm, 10/17/21 [...] Care Team Personnel Name: Hussain Meyer Address: [address] [place] [address] [place] [address]-
--- OUTSIDE RECORDS SUMMARY | 2023-11-24 18:20 | XMS_ITS | Continuity of Care Document ---
Author Organization [facility] Address [address] [place] [address]- Care Team Providers Care Mechanical Design Engineer Products Name Role Phone Hussain Meyer Primary Care Physician Encounter [facility] Date(s): 09/13/21 - 10/13/21 [facility] [address] [place] [address]- Allergies, Adverse Reactions, Alerts Substance Reaction Severity [...]
--- OUTSIDE RECORDS SUMMARY | 2023-11-24 18:20 | XMS_ITS | Continuity of Care Document ---
Author Organization [facility] Wo n's [facility] Address [address], [address] [place] [address]- Care Team Providers Care Cisco Network Engineer Name Role Phone Hussain Meyer Primary Care Physician Encounter [facility] Date(s): 02/09/22 - 03/11/22 [facility] [place] [employer] [facility] [address], [address]th [place] [address]- Allergies, Adverse Reactions, Alerts Substance Reaction Severity [...] 60 tablet, 0Refills, Maintenance, 01/23/22 8:01:00 EDT, [facility] #[facility], Partial fill upon patient request if the prescription is for a schedule II opioid drug.... Start Date: 01/23/22 Status: Ordered EpiPen 2-Sarabjit 0.3 mg injectable kit = 0.3 mg, Intramuscular, Once, # 2 each, 1 Refills, Soft Stop, 11/18/21 12:18:00 EDT, [facility] #[facility], 175, cm, 10/17/21 12:59:00 EDT, Height, 130, kg, 06/27/21 9:59:00 EST, Dry Weight Start Date: 11/18/21 Status: Ordered hydrOXYzine hydrochloride 25 mg oral tablet 1 tablet = 25 mg, By Mouth, 4 times a day, PRN for anxiety, # 120 tablet, 0 Refills, Maintenance, 01/03/22 20:08:00 EDT, Tablet, [facility] #[facility], Partial fill upon patient [...] 9:02:00 EDT, Inhaler, Route to Pharmacy Electronically, [id number], [facility], 175, cm, 10/17/21 12:59:00 [...] Team Personnel Name: Hussain Meyer Address: [address] [place] [address] [address]-
--- OUTSIDE RECORDS SUMMARY | 2023-11-24 18:20 | XMS_ITS | Continuity of Care Document ---
Author Organization [facility] Address [address] [place] [address]- Care Team Providers Care Infrastructure Security Architect Name Role Phone Hussain Meyer Primary Care Physician Encounter [facility] Date(s): 06/14/21 - 08/25/21 [facility] [address] [place] [address]- Attending Physician: Hussain Meyer Allergies, Adverse Reactions, Alerts [...]
--- OUTSIDE RECORDS SUMMARY | 2023-11-24 18:20 | XMS_ITS | Continuity of Care Document ---
Author Organization [facility] Wo n's [facility] Address [address], [address] [place] [address]- Care Team Providers Care Machine Installer Name Role Phone Hussain Meyer Primary Care Physician Encounter [facility] Date(s): 04/26/22 - 05/03/22 [facility] [employer] [facility] [address], [address] [place] [address]- Attending Physician: Chyna RIVERA, Ariella Wong Referring Physician: Sarah RIVERA, Judith Regina Allergies, Adverse Reactions, Alerts Substance Reaction [...] 2 Refills, Maintenance, 03/28/22 14:34:00 EDT, Tablet, [facility] [...] opioid drug. Start Date: 10/17/21 Status: Ordered 1 0 Refills, Maintenance, 04/26/22 9:06:00 EDT, Partial fill upon patient request if the prescriptionis for a schedule II opioid drug. Start Date: 04/26/22 Status: Ordered ProAir HFA 90 mcg/inh inhalation aerosol with adapter 180 mcg, 2, puffs, Inhalation, 4 times a day, PRN, # 18 Gm, Refills 5, Tot. Refills 5, Maintenance,11/14/21 9:02:00 EDT, Inhaler, Route to Pharmacy Electronically, [id number], [facility], 175, [...] oldest [Reference Range]: 1 Height 175 cm (04/26/22 9:05 AM) Weight 131.1 kg (04/26/22 9:05 AM) Body Mass Index [18.5-24.99 kg/m2] 42.81 kg/m2 *>HHI* (04/26/22 9:05 AM) Blood Pressure [90-138/55-84 mm Hg] 120/ 79mm Hg (04/26/22 9:05 AM) Blood pressure sites Arm, right (04/26/22 9:05 AM) Dry Weight 131.1 kg (04/26/22 9:05 AM) Weight Obtained Via Standing scale (04/26/22 9:05 AM) Dry Weight Obtained Via Standing scale (04/26/22 9:05 AM) Social History Social History Type Response Smoking Status Never (less than 100 in lifetime) entered on: 06/14/21 Sex Patient Care team information Personnel Name: Hussain Meyer Address: Address: [address] [place] [id number]
--- OUTSIDE RECORDS SUMMARY | 2023-11-24 18:20 | XMS_ITS | Continuity of Care Document ---
Author Organization [facility] Address [address] [place] [address]- Care Team Providers Care Light Bulb Assembler Name Role Phone Hussain Meyer Primary Care Physician [phone] Encounter [facility] Date(s): 06/14/21 - 07/14/21 [facility] [address] [place] [address]- Allergies, Adverse Reactions, Alerts Substance Reaction Severity Status nabumetone Active Keflex Active Abilify abd pain Active penicillins hives, SOB Active Bee Stings [...]
--- OUTSIDE RECORDS SUMMARY | 2023-11-24 18:20 | XMS_ITS | Continuity of Care Document ---
Author Organization [facility] Address [address] [place] [address]- Care Team Providers Care Spiral Tube Winder Helper Name Role Phone Hussain Meyer Primary Care Physician Encounter [facility] Date(s): 07/11/21 - 08/10/21 [facility] [address] [place] [address]- Allergies, Adverse Reactions, Alerts Substance Reaction Severity [...]
--- OUTSIDE RECORDS SUMMARY | 2023-11-24 18:20 | XMS_ITS | Continuity of Care Document ---
Author Organization [facility] Address [address] [place] [address]- Care Team Providers Care Sheet Metal Former Name Role Phone Hussain Meyer Primary Care Physician Encounter [facility] Date(s): 07/05/21 - 08/04/21 [facility] [place] [address] [place] [address]- Allergies, Adverse Reactions, Alerts Substance Reaction Severity [...]
--- OUTSIDE RECORDS SUMMARY | 2023-11-24 18:20 | XMS_ITS | Continuity of Care Document ---
Author Organization [facility] Wo [facility] Address [address], [address] [place] [address]- Care Team Providers Care Pocket Marker Name Role Phone Hussain Meyer Primary Care Physician En[facility] Date(s): 02/10/22 - 03/12/22 [facility] [employer] [facility] [address], 4th [place] [address]- Allergies, Adverse Reactions, Alerts Substance Reaction Severity [...] 60 tablet, 0Refills, Maintenance, 01/23/22 8:01:00 EDT, [facility] #[facility], Partial fill upon patient request if the prescription is for a schedule II opioid drug.... Start Date: 01/23/22 Status: Ordered EpiPen 2-Sarabjit 0.3 mg injectable kit = 0.3 mg, Intramuscular, Once, # 2 each, 1 Refills, Soft Stop, 11/18/21 12:18:00 EDT, [facility], 175, cm, 10/17/21 12:59:00 EDT, Height, 130, kg, 06/27/21 9:59:00 EST, Dry Weight Start Date: 11/18/21 Status: Ordered hydrOXYzine hydrochloride 25 mg oral tablet 1 tablet = 25 mg, By Mouth, 4 times a day, PRN for anxiety, # 120 tablet, 0 Refills, Maintenance, 01/03/22 20:08:00 EDT, Tablet, [facility] #[facility], Partial fill upon patient request [...] 9:02:00 EDT, Inhaler, Route to Pharmacy Electronically, [id number], [facility], 175, cm, 10/17/21 12:59:00 E... [...] Care Team Personnel Name: Hussain Meyer Address: [address] [place] [address] [address]-
--- OUTSIDE RECORDS SUMMARY | 2023-11-24 18:20 | XMS_ITS | Continuity of Care Document ---
Author Organization [facility] Esau Wo n's [facility] Address [address], [address] [place] [address]- Care Team Providers Care Sales Representative Health Insurance Name Role Phone Hussain Meyer Primary Care Physician En[place] [facility] Date(s): 01/27/22 - 03/15/22 [facility] [employer] [facility] [address], [address] [place] [address]- Attending Physician: Chyna RIVERA, Ariella Wong Referring Physician: Conner RIVERA [OB], Dorys Fleming [...] 9:02:00 EDT, Inhaler, Route to Pharmacy Electronically, [id number], [facility], 175, cm, 10/17/21 12:59:00 E... Start Date: 11/14/21 Status: Ordered traZODone 50 mg oral tablet 50 mg, 1, tablet, By Mouth, Daily at bedtime, # 90 tablet, Refills 0, Tot. Refills 0, Maintenance, 11/14/21 9:00:00 EDT, Route to Pharmacy Electronically, [facility], Partial fill upon patient request [...] Care Team Personnel Name: Hussain Meyer Address: [address] [place] [address] Primary [place] [address]-
--- OUTSIDE RECORDS SUMMARY | 2023-11-24 18:20 | XMS_ITS | Continuity of Care Document ---
Author Organization [facility] Address [address] [place] [address]- Care Team Providers Care Intelligence Operations Name Role Phone Hussain Meyer Primary Care Physician [phone] Encounter [facility] Date(s): 07/28/21 - 08/27/21 [facility] [address] [place] [address]- Allergies, Adverse Reactions, Alerts Substance Reaction Severity [...]
--- OUTSIDE RECORDS SUMMARY | 2023-11-24 18:20 | XMS_ITS | Continuity of Care Document ---
Author Organization [facility] Address [address] [place] [address]- Care Team Providers Care Machine I Coremaker Name Role Phone Hussain Meyer Primary Care Physician Encounter [facility] Date(s): 10/17/21 - 11/16/21 [facility] [address] [place] [address]- Allergies, Adverse Reactions, Alerts Substance Reaction Severity [...]
--- OUTSIDE RECORDS SUMMARY | 2023-11-24 18:20 | XMS_ITS | Continuity of Care Document ---
Author Organization [facility] Address [address] [place] [address]- Care Team Providers Care Marketing Operations Assistant Name Role Phone Crystal Cintron MD Primary Care Physician Encounter [facility] Date(s): 04/21/21 - 04/21/[address] [address]- Discharge Disposition: A-D/C Home Attending Physician: Lupe RIVERA, Melina Yu Admitting Physician: Melina Andrade MD Referring Physician: Not on Staff, Referring [...] opioid drug. Start Date: 04/21/21 Status: Ordered acetaminophen-codeine 300 mg-30 mg oral tablet 1 tablet, Tablet, By Mouth, Once, STEPHAN, 04/21/21 2:43:00 EDT, Stop date 04/21/21 2:43:00 EDT Start Date: 04/21/21 Stop Date: 04/21/21 Status: Completed acetaminophen-codeine 300 mg-30 mg oral tablet 1, tablet, By Mouth, Every 4 hours, PRN, Do not drive or drink alcohol while taking. Contains acetaminophen., # 20 tablet, Refills 0, Tot. Refills 0, Acute, for pain, 04/26/21 2:00:00 EDT, 04/21/21 2:46:00 EDT, Route to Pharmacy Electronically, [facility] Start Date: 04/21/21 Stop Date: 04/26/21 Status: Ordered Advil 200 mg oral tablet [...] oldest [Reference Range]: 1 2 3 Height 176 cm (04/21/21 3:20 AM) 176 cm (04/21/21 1:42 AM) Weight 127.9 kg (04/21/21 3:20 AM) 127.9 kg (04/21/21 1:42 AM) Oxygen Saturation [94-100 %] 99 % (04/21/21 3:20 AM) 100 % (04/21/21 1:42 AM) Pulse Rate [55-90 bpm] 85 bpm (04/21/21 3:20 AM) 91 bpm *H* (04/21/21 1:42 AM) Body Mass Index [18.5-24.99] 41.29 *>HHI* (04/21/21 3:20 AM) Blood Pressure [90-138/55-84 mm Hg] 115/93mm Hg (04/21/21 3:20 AM) 125/92mm Hg (04/21/21 1:42 AM) Respiratory Rate [16-30 br/min] 16 br/min (04/21/21 3:20 AM) 18 br/min (04/21/21 2:53 AM) 18 br/min (04/21/21 1:42 AM) Temperature [96.8-100.4 DegF] 98.9 DegF (04/21/21 3:20 AM) 98.2 DegF (04/21/21 1:42 AM) Mode of Delivery (Oxygen) Room air (04/21/21 3:20 AM) Room air (04/21/21 1:42 AM) Blood pressure sites Arm, left (04/21/21 3:20 AM) Arm, right (04/21/21 1:42 AM) Temperature Route Oral (04/21/21 3:20 AM) Oral (04/21/21 1:42 AM) Dry Weight 127.9 kg (04/21/21 3:20 AM) 127.9 kg (04/21/21 1:42 AM) Weight Obtained Via Standing scale (04/21/21 1:42 AM) Dry Weight Obtained Via Standing scale (04/21/21 1:42 AM) Social History Social History Type Response Smoking Status Never smoker; Tobacc o user in household: No entered on: 06/21/15 Sex
--- OUTSIDE RECORDS SUMMARY | 2023-11-24 18:21 | XMS_ITS | Continuity of Care Document ---
Author Organization [facility] ter Address [address] [place] [address]- Care Team Providers Care Rn On Site Name Role Phone Hussain Meyer Primary Care Physician Encounter [facility] Date(s): 02/15/22 - 02/15/[address] [address] Discharge Disposition: A-D/C Home Attending Physician: Judith Smith MD Admitting Physician: Judith Smith MD Referring Physician: Judith Smith MD Allergies, Adverse Reactions, Alerts Substance Reaction [...] Refills, Acute 03/15/22 9:40:00EDT, 02/13/22 9:40:00 EDT, [facility], Partial fill upon patient request if the prescription is for a schedule II opioid drug., 175, cm, ... Start Date: 02/13/22 Stop Date: 03/15/22 Status: Ordered Vitamin B6 25 mg oral tablet 1 tablet = 25 mg, By Mouth, 3 times a day, for 30 days, # 90 tablet, 0 Refills, Acute 03/15/22 9:40:00 EDT, 02/13/22 9:40:00 EDT, [facility], Partial fill upon patient request [...] Most recent to oldest [Reference Range]: 1 Weight 135.0 kg (02/15/22 2:41 AM) Oxygen Saturation [94-100 %] 100 % (02/15/22 2:24 AM) Blood Pressure [90-138/55-84 mm Hg] 101/ 67mm Hg (02/15/22 2:24 AM) Respiratory Rate [16-30 br/min] 20 br/mi n (02/15/22 2:24 AM) Temperature [96.8-100.4 DegF] 98.5 DegF (02/15/22 2:24 AM) Mode of Delivery (Oxygen) Room air (02/15/22 2:24 AM) Blood pressure sites Arm, right (02/15/22 2:24 AM) Temperature Route Oral (02/15/22 2:24 AM) Dry Weight 135.0 kg (02/15/22 2:41 AM) Weight Obtained Via Standing scale (02/15/22 2:41 AM) Social History Social History Type Response Smoking Status Never (less than 100 in lifetime) entered on: 06/14/21 Sex
--- OUTSIDE RECORDS SUMMARY | 2023-11-24 18:21 | XMS_ITS | Continuity of Care Document ---
Author Organization [facility] Address [address] [place] [address]- Care Team Providers Care Coil Builder Name Role Phone Hussain Meyer Primary Care Physician Encounter [facility] Date(s): 07/06/21 - 08/05/21 [facility] [place] [address] [place] [address]- Allergies, Adverse Reactions, Alerts Substance Reaction Severity [...]
[2023-11-24 18:23] LABS: MANUAL DIFF FLAG NO
[2023-11-24 18:24] LABS: Basophils Percent Auto 0.4 % (0-2); Eosinophils Absolute Auto 0.3 X10*3/uL (0.0-0.4); Eosinophils Percent Auto 2.9 % (0-4); Hematocrit 36.1 % (37.0-47.0); Hemoglobin 11.7 g/dl (12.0-16.0); Imm Gran Abs Auto 0.02 X10*3/uL (0.00-0.03); Imm Gran Pct Auto 0.2 % (0.0-0.4); Lymphocytes Absolute Auto 1.9 X10*3/uL (1.2-4.9); Lymphocytes Percent Auto 21.9 % (20-40); Mean Corpuscular HGB Conc 32.4 g/dl (31.0-35.0); Mean Corpuscular Hemoglobin 25.5 pg (27.0-33.0); Mean Corpuscular Volume 78.8 fL (80.0-98.0); Mean Platelet Volume 10.2 fL (9.4-12.3); Monocytes Absolute Auto 0.9 X10*3/uL (0.1-1.2); Monocytes Percent Auto 10.1 % (2-11); Neutrophils Absolute Auto 5.5 x10*3/uL (2.0-8.3); Neutrophils Percent Auto 64.5 % (45-73); Platelet Count 281 X10*3/uL (160-400); Red Blood Count 4.58 X10*6/uL (4.20-5.50); Red Cell Distribution Width 15.8 % (11.0-16.0); White Blood Count 8.5 X10*3/uL (4.8-10.8)
[2023-11-24 18:36] LABS: Lactic Acid 0.8 mmol/L (0.5-2.0)
[2023-11-24 18:40] LABS: Alanine Aminotransferase 15 U/L (0-31); Albumin Level 4.4 g/dL (3.5-5.0); Alkaline Phosphatase 73 U/L (39-117); Anion Gap 15 (12-20); Aspartate Amino Transferase 15 U/L (5-31); Bilirubin Direct < 0.2 mg/dL (0.0-0.5); Bilirubin Total 0.2 mg/dL (0.0-1.0); Blood Urea Nitrogen 12 mg/dL (9-16); Calcium 9.4 mg/dL (8.4-10.2); Carbon Dioxide 20 mmol/L (22-29); Chloride 109 mmol/L (96-108); Creatinine Clr Calc Pharmacy 123.8; Estimated Glomerular Filt Rate > 60; Glucose Random 101 mg/dL (60-115); Magnesium 2.1 mg/dL (1.6-2.6); Potassium 3.6 mmol/L (3.3-5.1); Sodium 140 mmol/L (135-145); Total Protein 7.6 g/dL (6.5-8.0)
[2023-11-24 19:03] LABS: Influenza A PCR NEGATIVE (Negative); Influenza B PCR NEGATIVE (Negative); Resp Syncy Virus RNA Qual PCR NEGATIVE (Negative); SARS COV2 PCR INHOUSE NEGATIVE (Negative)
[2023-11-25] MEDS: ondansetron HCL 4 MG/2 ML VIAL IVPUSH (04:33)
[2023-11-25] MEDS: Ketorolac Tromethamine 15 MG/ML VIAL IVPUSH (04:34)
[2023-11-25] MEDS: Doxycycline Monohydrate 100 MG CAPSULE PO (04:34)
[2023-11-25] MEDS: 0.9 % Sodium Chloride 1,000 ML 999 ML IV (04:35)
[2023-11-25 04:36] VITALS: TEMP 36.7
[2023-11-25 06:24] VITALS: BP 107/70; PULSE 91; RESP 16; TEMP 36.6; O2SAT 97
[2023-11-25 06:29] VITALS: BP 107/70; PULSE 91; RESP 16; TEMP 36.6; O2SAT 97
[2023-11-26 20:59] LABS: A. Phagocytphilium DNA,RT-PCR NOT DETECTED (NOT DETECTED); Babesia Microti DNA, RT-PCR NOT DETECTED (NOT DETECTED); Borrelia Miyamotoi,DNA RT-PCR NOT DETECTED (NOT DETECTED); E.Chaffeensis DNA RT-PCR NOT DETECTED (NOT DETECTED); Lyme(Borrelia ssp)DNA RT-PCR NOT DETECTED (NOT DETECTED)
== END 2023-11-25 06:30 | disposition home or self-care (01) ==
PROVIDERS: Physician Assistant Medical; Emergency Provider Emergency Medicine Emergency Medical Services; PCP Student in an Organized Health Care Education/Training Program
DX: A69.20 Lyme disease, unspecified (principal); R50.9 Fever, unspecified; J45.909 Unspecified asthma, uncomplicated; Z03.818 Encounter for observation for suspected exposure to other biological agents ruled out
CPT/HCPCS: 0241U; 36415; 80048; 80076; 83605; 83735; 85025; 87040; 87468; 87469; 87478; 87484; 87798; 96361; 96374; 96375; 99284; J1885; J2405

== ENCOUNTER 2023-11-26 10:37 | Emergency (ER) | payer OTHER, SELFPAY ==
--- NOTE | ~2023-11-26 | XR_ITS ---
EXAMINATION: XR chest 2V CLINICAL INFORMATION: Dyspnea COMPARISON: No prior chest x-ray available in our system for comparison at the time of this dictation. TECHNIQUE: XR chest 2V, 2 Views Lungs and Renuka: Both lungs are clear. Pleura: Normal. Costophrenic angles are sharp. No pneumothorax. Heart: The heart is normal in size. Mediastinum: The mediastinum is within normal limits.. Bones: Skeletal structures included are normal for patient's age. XR/XR chest 2V IMPRESSION: No radiographic evidence of acute cardiopulmonary disease.
[2023-11-26 11:05] VITALS: BP 129/63; PULSE 112; RESP 22; TEMP 35.7; O2SAT 98; BMI 42.5
--- NOTE | 2023-11-26 11:05 | ED.GENADULT ---
HPI - General Adult General Chief complaint: General Medical Stated complaint: Lyme+, SOB, Shakiness Time Seen by Provider: 11/26/23 12:08 Source: patient, RN notes reviewed and old records reviewed Mode of arrival: ambulatory Limitations: no limitations History of Present Illness ED Provider: Dr. Dangelo HPI narrative: Patient seen 2 days ago and diagnosed with lyme disease, she was started on doxy but comes in today stating she does not feel right and is short of breath. Patient concerned that she lost her voice and her throat is sore Onset (ago): day(s) Related Data Previous Rx's ?Medication ?Instructions ?Recorded doxycycline hyclate 100 mg tablet 100 mg PO Q12H 21 days #42 tabs 11/25/23 ondansetron 4 mg disintegrating 4 mg PO Q6-8H PRN nausea and 11/25/23 tablet vomiting #14 tabs prednisone 20 mg tablet 60 mg (3 x 20 mg) PO DAILY #12 tabs 11/26/23 Allergies Allergy/AdvReac Type Severity Reaction Status Date / Time aripiprazole [From Abilify] Allergy Stomach Verified 11/26/23 11:07 Upset cephalexin [From Keflex] Allergy Stomach Verified 11/26/23 11:07 Upset Latex, Natural Rubber Allergy Rash Verified 11/26/23 11:07 nabumetone Allergy Stomach Verified 11/26/23 11:07 Upset Penicillins [PCN] Allergy Anaphylaxis Verified 11/26/23 11:07 shellfish derived Allergy Anaphylaxis Verified 11/26/23 11:07 sun sensitivity Allergy Rash Uncoded 11/26/23 11:07 Review of Systems Review of Systems: Yes all other systems are reviewed and are negative Neurologic: Denies Sensory deficit (Neuro) [facility] Social History Social History Alcohol intake: current Smoked in Last 30 Days: No Use of substances other than those prescribed or required for medical reasons: No Advance Directives: No Advance Directives Information Provided: Yes Physical Exam ED Vital Signs: Vital Signs - 24 hr 11/26/23 11:05 11/26/23 12:01 Temperature 96.3 F L 96.4 F L Pulse Rate 112 H 100 Respiratory Rate 22 H 22 H Blood Pressure 129/63 111/77 Pulse Oximetry 98 100 Oxygen Delivery Method Room Air Room Air BMI result Body Mass Index 42.5 Const Other: obese very anxious, whispering possible laryngitis Orientation/consciousness: oriented to person and patient oriented x3 Limitations: no limitations HENMT Other: pharynx clear Head: Yes normal to inspection Ears: external ears normal General nose exam: Normal external nose present Mouth: Normal oral and palatal mucosa present and oropharynx normal Throat: Yes posterior oropharynx normal Eyes General: appearance normal, both eyes and all related structures Neck Neck: Yes normal visual inspection Chest Chest palpation & inspection: normal inspection of the chest Resp Auscultation: clear to auscultation bilaterally Cardio Jugular venous distension: no JVD Rate: regular rate Rhythm: regular rhythm Heart sounds: S1 normal heart sound present and S2 normal heart sound present GI Inspection: Yes normal to inspection Palpation (GI): Soft to palpation, nontender and No hepatosplenomegaly present Auscultation: normal bowel sounds General: Yes no CVA tenderness Back/Spine/Pelvis Back: no CVA tenderness Skin Other: circular erythema on arm has improved Neuro General: oriented to person and patient oriented x3 Cranial nerves: Yes CN's II-XII intact bilaterally Motor exam (neuro): 5/5 motor strength present throughout Sensory Exam: No Sensory deficit (Neuro) Extrem General: Yes normal to inspection Psych Appearance: grossly normal Course Course Course Narrative: This is a rapid medical exam performed by Cherri [place] NP: Additional HPI, ROS, PE not included below will be deferred to primary provider. Patient is a 43-year-old female with history of PTSD, asthma, currently being treated for Lyme with doxycycline presenting with complaint of dyspnea. States she called her nurse and was told to come in. Patient whispering in triage. Lungs clear throughout. Slightly tachycardic at 107, appears anxious in triage. Plan: viral swabs, labs, CXR Reevaluation(s) Reevaluation #1: Patient with new laryngitis will start prednisone and dc home Time: 12:20 Medical Decision Making Differential Diagnosis Differential Diagnoses: The differential diagnosis associated with the presentation includes (lyme, ehrlichosis, babesia, pneumonia, laryngitis) Admission/Observation Consideration of admission/observation: Escalation of care including admission/observation considered (upon arrival patient was considered for admission) Lab Data MDM Lab Attestation statement: I reviewed the patient's lab results. 11/26/23 11:26 11/26/23 11:26 Labs: Lab Results 11/26/23 Range/Units 11:26 WBC 6.2 (4.8-10.8) X10*3/uL RBC 4.69 (4.20-5.50) X10*6/uL Hgb 11.8 L (12.0-16.0) g/dl Hct 37.0 (37.0-47.0) % MCV 78.9 L (80.0-98.0) fL MCH 25.2 L (27.0-33.0) pg MCHC 31.9 (31.0-35.0) g/dl RDW 15.9 (11.0-16.0) % Plt Count 311 (160-400) X10*3/uL MPV 9.8 (9.4-12.3) fL Immature Gran % (Auto) 0.2 (0.0-0.4) % Neut % (Auto) 57.7 (45-73) % Lymph % (Auto) 28.2 (20-40) % Calhoun % (Auto) 6.6 (2-11) % Eos % (Auto) 6.8 H (0-4) % Baso % (Auto) 0.5 (0-2) % Lymph # (Auto) 1.7 (1.2-4.9) X10*3/uL Calhoun # (Auto) 0.4 (0.1-1.2) X10*3/uL Eos # (Auto) 0.4 (0.0-0.4) X10*3/uL Baso # (Auto) 0.0 (0.0-0.2) X10*3/uL Abs Immat Gran (auto) 0.01 (0.00-0.03) X10*3/uL Absolute Neuts (auto) 3.6 (2.0-8.3) x10*3/uL Absolute Nucleated RBC 0.000 (0.0-0.012) X10*3/uL Nucleated RBC % (auto) 0.0 (0.0-0.2) /100WBC Sodium 142 (135-145) mmol/L Potassium 3.9 (3.3-5.1) mmol/L Chloride 110 H (96-108) mmol/L Carbon Dioxide 22 (22-29) mmol/L Anion Gap 14 (12-20) BUN 12 (9-16) mg/dL Creatinine 0.80 (0.5-1.4) mg/dL Estim Creat Clear Calc 132.9 Estimated GFR > 60 Random Glucose 106 (60-115) mg/dL Calcium 9.7 (8.4-10.2) mg/dL Total Bilirubin 0.2 (0.0-1.0) mg/dL AST 14 (5-31) U/L ALT 11 (0-31) U/L Alkaline Phosphatase 80 (39-117) U/L Total Protein 7.7 (6.5-8.0) g/dL Albumin 4.3 (3.5-5.0) g/dL Influenza Type A (PCR) NEGATIVE (Negative) Influenza Type B (PCR) NEGATIVE (Negative) RSV RNA Qual (PCR) NEGATIVE (Negative) SARS-CoV-2 RNA (RT-PCR) NEGATIVE (Negative) Independent Interpretation I performed an independent interpretation of an: Plain X-Ray (no infiltrate) External Record Review External record reviewed: Outpatient record Chronic Conditions Patient?s care impacted by: Other (obesity and anxiety) Discharge Plan Discharge Clinical Impression: Lyme disease, Laryngitis Patient Disposition: Home, Self-Care Instructions: Lyme Disease (ED), Laryngitis (ED) Prescriptions: New prednisone 20 mg tablet 60 mg PO DAILY Qty: 12 0RF No Action doxycycline hyclate 100 mg tablet 100 mg PO Q12H 21 Days Qty: 42 0RF ondansetron 4 mg tablet,disintegrating 4 mg PO Q6-8H PRN (Reason: nausea and vomiting) Qty: 14 0RF Referrals: Hussain Ravi PA [Primary Care Provider] - 5 days Print Language: [place]
[2023-11-26 11:31] LABS: MANUAL DIFF FLAG NO
[2023-11-26 11:32] LABS: Basophils Percent Auto 0.5 % (0-2); Eosinophils Absolute Auto 0.4 X10*3/uL (0.0-0.4); Eosinophils Percent Auto 6.8 % (0-4); Hemoglobin 11.8 g/dl (12.0-16.0); Imm Gran Abs Auto 0.01 X10*3/uL (0.00-0.03); Imm Gran Pct Auto 0.2 % (0.0-0.4); Lymphocytes Absolute Auto 1.7 X10*3/uL (1.2-4.9); Lymphocytes Percent Auto 28.2 % (20-40); Mean Corpuscular HGB Conc 31.9 g/dl (31.0-35.0); Mean Corpuscular Hemoglobin 25.2 pg (27.0-33.0); Mean Corpuscular Volume 78.9 fL (80.0-98.0); Mean Platelet Volume 9.8 fL (9.4-12.3); Monocytes Absolute Auto 0.4 X10*3/uL (0.1-1.2); Monocytes Percent Auto 6.6 % (2-11); Neutrophils Absolute Auto 3.6 x10*3/uL (2.0-8.3); Neutrophils Percent Auto 57.7 % (45-73); Platelet Count 311 X10*3/uL (160-400); Red Blood Count 4.69 X10*6/uL (4.20-5.50); Red Cell Distribution Width 15.9 % (11.0-16.0); White Blood Count 6.2 X10*3/uL (4.8-10.8)
--- NOTE | 2023-11-26 11:48 | PC.NURSE ---
pt reports she has been taking doxy since Sunday for Lyme. This morning, woke up shaky, short or breath, with sharp pain in her neck. She says she feels very hot.
[2023-11-26 11:52] LABS: Alanine Aminotransferase 11 U/L (0-31); Albumin Level 4.3 g/dL (3.5-5.0); Alkaline Phosphatase 80 U/L (39-117); Anion Gap 14 (12-20); Aspartate Amino Transferase 14 U/L (5-31); Bilirubin Total 0.2 mg/dL (0.0-1.0); Blood Urea Nitrogen 12 mg/dL (9-16); Calcium 9.7 mg/dL (8.4-10.2); Carbon Dioxide 22 mmol/L (22-29); Chloride 110 mmol/L (96-108); Creatinine Clr Calc Pharmacy 132.9; Estimated Glomerular Filt Rate > 60; Glucose Random 106 mg/dL (60-115); Potassium 3.9 mmol/L (3.3-5.1); Sodium 142 mmol/L (135-145); Total Protein 7.7 g/dL (6.5-8.0)
[2023-11-26 12:01] VITALS: BP 111/77; PULSE 100; RESP 22; TEMP 35.8; O2SAT 100
[2023-11-26 12:09] LABS: Influenza A PCR NEGATIVE (Negative); Influenza B PCR NEGATIVE (Negative); Resp Syncy Virus RNA Qual PCR NEGATIVE (Negative); SARS COV2 PCR INHOUSE NEGATIVE (Negative)
[2023-11-26 12:40] VITALS: BP 111/77; PULSE 100; RESP 22; TEMP 35.8; O2SAT 100
[2023-11-26] MEDS: predniSONE 20 MG TABLET 60 MG PO (12:46)
== END 2023-11-26 12:49 | disposition home or self-care (01) ==
PROVIDERS: Registered Nurse Emergency; Emergency Provider Emergency Medicine; PCP Student in an Organized Health Care Education/Training Program
DX: A69.20 Lyme disease, unspecified (principal); J04.0 Acute laryngitis; Z03.818 Encounter for observation for suspected exposure to other biological agents ruled out
CPT/HCPCS: 0241U; 71046; 80053; 85025; 99283; 99284